=== PATIENT | male | born 1980 | race Caucasian/White ===

== ENCOUNTER 2023-03-16 18:38 | Emergency (ER) | payer MEDICAID, OTHER ==
[~2023-03-16] VITALS: Ht 180.3 cm; Wt 85.0 kg
[2023-03-16 18:45] VITALS: BP 129/82; PULSE 118; RESP 18; TEMP 98.2; O2SAT 97
[2023-03-16 19:56] LABS: BASOPHILS % 0.3 % (0.0-2.0); EOSINOPHILS % 0.5 % (0.0-5.0); HEMATOCRIT. 46.8 % (42.0-52.0); HEMOGLOBIN. 16.1 g/dL (14.0-18.0); LYMPHOCYTES % 21.9 % (20.0-50.0); MEAN CORPUSCULAR HEMOGLOBIN 30.4 pg (28.0-32.0); MEAN CORPUSCULAR HGB CONC 34.4 g/dL (31.0-37.0); MEAN CORPUSCULAR VOLUME 88.2 fL (80.0-94.0); MEAN PLATELET VOLUME 7.8 fl (7.4-10.4); MONOCYTES % 9.7 % (2.0-8.0); NEUTROPHILS % 67.6 % (40.0-76.0); PLATELET 256 x1000/uL (130-400); RED BLOOD CELL COUNT 5.31 mill/uL (4.7-6.1); RED CELL DISTRIBUTION WIDTH 13.3 % (11.6-14.6); WHITE BLOOD COUNT 11.4 x1000/uL (4.5-11.0)
[2023-03-16 20:06] LABS: CHLORIDE 103 mEq/L (98-107); INDEX HEMOLYSI 1 (1-3); INDEX ICTERIC 1 (1-4); INDEX LIPEMIC 1 (1-3); POTASSIUM 3.8 mEq/L (3.5-5.1); SODIUM 136 mEq/L (136-145)
[2023-03-16 20:17] LABS: ALANINE AMINOTRANSFERASE 14 IU/L (13-61); ALBUMIN 4.1 g/dL (3.4-5.0); ASPARTATE AMINOTRANSFERASE 6 IU/L (15-37); BILIRUBIN TOTAL 1.2 mg/dL (0.1-1.0); CALCIUM 8.8 mg/dL (8.5-10.1); CARBON DIOXIDE 27 mEq/L (21-32); CREATININE 0.7 mg/dL (0.6-1.3); GLUCOSE 141 mg/dL (70-105); PROTEIN TOTAL 7.6 g/dL (6.0-8.3); TROPONIN I HIGH SENSITIVITY 5 ng/L (<78); UREA NITROGEN BLOOD 14 mg/dL (7-21)
== END 2023-03-16 21:00 | disposition left against medical advice (07) ==
LOC: ER 18:38
DX: R07.9 Chest pain, unspecified (principal)
CPT/HCPCS: 36415; 71045; 80053; 84484; 85025; 85379; 93005; 99285

== ENCOUNTER 2023-03-16 21:42 | Emergency (ER) | payer MEDICAID, OTHER ==
[~2023-03-16] VITALS: Ht 180.3 cm; Wt 100.0 kg
[2023-03-16 21:56] VITALS: BP 123/84; PULSE 135; RESP 18; TEMP 99.3; O2SAT 98
== END 2023-03-17 06:11 | disposition home or self-care (01) ==
LOC: ER 21:42
DX: R07.9 Chest pain, unspecified (principal)
CPT/HCPCS: 93005; 99283

== ENCOUNTER 2023-03-17 13:33 | Emergency (ER) | payer MEDICAID, OTHER ==
[~2023-03-17] VITALS: Ht 172.7 cm; Wt 81.0 kg
[2023-03-17 13:38] VITALS: BP 95/47; PULSE 122; RESP 17; TEMP 98; O2SAT 97
[2023-03-17] MEDS ORDERED: LACTATED RINGERS 1,000 ML IV SCH (14:45)
== END 2023-03-17 15:22 | disposition home or self-care (01) ==
LOC: ER 13:47
DX: R07.89 Other chest pain (principal)
CPT/HCPCS: 71045; 93005; 99283

== ENCOUNTER 2023-03-17 19:16 | Emergency (ER) | payer OTHER ==
[~2023-03-17] VITALS: Ht 172.7 cm; Wt 80.0 kg
[2023-03-17 19:25] VITALS: BP 146/78; PULSE 84; RESP 18; TEMP 98.4; O2SAT 98
== END 2023-03-17 22:31 | disposition home or self-care (01) ==
LOC: ER 19:16
DX: R53.83 Other fatigue (principal)
CPT/HCPCS: 99283

== ENCOUNTER 2023-03-18 11:15 | Emergency (ER) | payer OTHER ==
[~2023-03-18] VITALS: Ht 177.8 cm; Wt 82.0 kg
[2023-03-18 11:20] VITALS: O2SAT 96
[2023-03-18 12:04] VITALS: BP 107/78; PULSE 78; RESP 16; TEMP 98.4
[2023-03-18 12:04] LABS: BASOPHILS % 0.3 % (0.0-2.0); EOSINOPHILS % 1.1 % (0.0-5.0); HEMATOCRIT. 43.8 % (42.0-52.0); HEMOGLOBIN. 15.3 g/dL (14.0-18.0); MEAN CORPUSCULAR HEMOGLOBIN 30.9 pg (28.0-32.0); MEAN CORPUSCULAR VOLUME 88.3 fL (80.0-94.0); MEAN PLATELET VOLUME 7.5 fl (7.4-10.4); MONOCYTES % 9.2 % (2.0-8.0); NEUTROPHILS % 61.4 % (40.0-76.0); PLATELET 250 x1000/uL (130-400); RED BLOOD CELL COUNT 4.96 mill/uL (4.7-6.1); RED CELL DISTRIBUTION WIDTH 13.1 % (11.6-14.6); WHITE BLOOD COUNT 8.1 x1000/uL (4.5-11.0)
[2023-03-18 12:11] LABS: CHLORIDE 102 mEq/L (98-107); INDEX HEMOLYSI 1 (1-3); INDEX ICTERIC 1 (1-4); INDEX LIPEMIC 1 (1-3); SODIUM 135 mEq/L (136-145)
[2023-03-18 12:21] LABS: ALANINE AMINOTRANSFERASE 13 IU/L (13-61); ALBUMIN 3.9 g/dL (3.4-5.0); ASPARTATE AMINOTRANSFERASE 10 IU/L (15-37); BILIRUBIN TOTAL 0.9 mg/dL (0.1-1.0); CALCIUM 8.8 mg/dL (8.5-10.1); CARBON DIOXIDE 21 mEq/L (21-32); ETHANOL BLOOD 15 mg/dL (<10); GLUCOSE 94 mg/dL (70-105); PROTEIN TOTAL 7.5 g/dL (6.0-8.3); UREA NITROGEN BLOOD 16 mg/dL (7-21)
[2023-03-18 14:06] LABS: ACETAMINOPHEN < 2 ug/mL (10-30)
== END 2023-03-18 13:57 | disposition home or self-care (01) ==
LOC: ER 11:19
DX: R45.851 Suicidal ideations (principal)
CPT/HCPCS: 36415; 80053; 80307; 80320; 80329; 85025; 99283; G0480

== ENCOUNTER 2023-03-18 23:13 | Emergency (ER) | payer OTHER | END 2023-03-19 01:50 | disposition left against medical advice (07) | LOC: ER 23:53 | DX: Z53.21 Procedure and treatment not carried out due to patient leaving prior to being seen by health care provider (principal) | CPT/HCPCS: 99281 ==

== ENCOUNTER 2023-03-20 11:53 | Emergency (ER) | payer OTHER ==
[~2023-03-20] VITALS: Ht 177.8 cm; Wt 99.0 kg
[2023-03-20 11:57] VITALS: BP 114/86; RESP 20; TEMP 98.3; O2SAT 98
[2023-03-20 13:05] LABS: CLARITY URINE CLEAR (CLEAR); COLOR URINE DARK YELLOW (YELLOW); GLUCOSE URINE 2+ (NEGATIVE); KETONES URINE NEGATIVE (NEGATIVE); LEUKOCYTE ESTERASE URINE NEGATIVE (NEGATIVE); NITRITE URINE NEGATIVE (NEGATIVE); OCCULT BLOOD URINE NEGATIVE (NEGATIVE); PH URINE 5.5 (4.5-8.0); PROTEIN URINE NEGATIVE (NEGATIVE); SPECIFIC GRAVITY URINE 1.026 (1.005-1.030)
[2023-03-20 13:08] LABS: RBC URINE 0-2 /hpf (0-2); SQUAMOUS EPITHELIAL CELL URINE NONE SEEN /lpf (RARE/1+); YEAST URINE NONE SEEN
[2023-03-20 13:11] LABS: BASOPHILS % 0.2 % (0.0-2.0); EOSINOPHILS % 1.6 % (0.0-5.0); HEMOGLOBIN. 15.8 g/dL (14.0-18.0); LYMPHOCYTES % 25.5 % (20.0-50.0); MEAN CORPUSCULAR HEMOGLOBIN 30.7 pg (28.0-32.0); MEAN CORPUSCULAR HGB CONC 34.3 g/dL (31.0-37.0); MEAN CORPUSCULAR VOLUME 89.5 fL (80.0-94.0); MONOCYTES % 7.3 % (2.0-8.0); NEUTROPHILS % 65.4 % (40.0-76.0); PLATELET 274 x1000/uL (130-400); RED BLOOD CELL COUNT 5.14 mill/uL (4.7-6.1); RED CELL DISTRIBUTION WIDTH 13.6 % (11.6-14.6); WHITE BLOOD COUNT 7.4 x1000/uL (4.5-11.0)
[2023-03-20 13:26] LABS: BACTERIA URINE RARE; WBC URINE 0-2 /hpf (0-2)
[2023-03-20 13:43] LABS: *AMPHETAMINES SCREEN URINE NEGATIVE (NEGATIVE); *BARBITURATES SCREEN URINE NEGATIVE (NEGATIVE); *BENZODIAZEPINES SCREEN URINE NEGATIVE (NEGATIVE); *COCAINE SCREEN URINE NEGATIVE (NEGATIVE); CANNABINOID URINE SCREEN NEGATIVE (NEGATIVE); ECSTASY MDMA SCREEN URINE NEGATIVE (NEGATIVE); OPIATES URINE SCREEN NEGATIVE (NEGATIVE); PHENCYCLIDINE URINE SCREEN NEGATIVE (NEGATIVE)
[2023-03-20 13:46] LABS: CHLORIDE 104 mEq/L (98-107); INDEX HEMOLYSI 1 (1-3); INDEX ICTERIC 1 (1-4); INDEX LIPEMIC 1 (1-3); POTASSIUM 4.1 mEq/L (3.5-5.1); SODIUM 137 mEq/L (136-145)
[2023-03-20 13:59] LABS: ALANINE AMINOTRANSFERASE 16 IU/L (13-61); ALBUMIN 4.1 g/dL (3.4-5.0); ASPARTATE AMINOTRANSFERASE 14 IU/L (15-37); BILIRUBIN TOTAL 1.1 mg/dL (0.1-1.0); CALCIUM 9.2 mg/dL (8.5-10.1); CARBON DIOXIDE 27 mEq/L (21-32); CREATININE 0.7 mg/dL (0.6-1.3); ETHANOL BLOOD < 10 mg/dL (<10); GLUCOSE 172 mg/dL (70-105); PROTEIN TOTAL 7.8 g/dL (6.0-8.3); UREA NITROGEN BLOOD 20 mg/dL (7-21)
== END 2023-03-21 01:05 | disposition left against medical advice (07) ==
LOC: ER 11:53
DX: R45.851 Suicidal ideations (principal); F32.A Depression, unspecified
CPT/HCPCS: 36415; 80053; 80305; 80307; 80320; 80329; 81003; 85025; 99283; 99284; 99285; G0480

== ENCOUNTER 2023-03-21 13:45 | Emergency (ER) | payer OTHER | END 2023-03-21 14:46 | disposition left against medical advice (07) | LOC: ER 13:45 | DX: Z53.21 Procedure and treatment not carried out due to patient leaving prior to being seen by health care provider (principal) | CPT/HCPCS: 99281 ==